=== PATIENT | male | born 1990 | race Caucasian/White ===

== ENCOUNTER 2019-12-30 19:56 | Emergency (ER) | payer OTHER ==
[~2019-12-30] VITALS: Ht 172.7 cm; Wt 64.0 kg
[2019-12-30 20:10] VITALS: Ht 172.7 cm; Wt 64.0 kg
[2019-12-30 21:33] VITALS: BP 113/77
== END 2019-12-30 21:33 | disposition home or self-care (01) ==
LOC: ED 19:56
DX: S53.402A Unspecified sprain of left elbow, initial encounter (principal); W20.8XXA Other cause of strike by thrown, projected or falling object, initial encounter; Y93.89 Activity, other specified; Y92.89 Other specified places as the place of occurrence of the external cause; Y99.8 Other external cause status
CPT/HCPCS: J1885; Q0092